=== PATIENT | male | born 1955 | race Asian ===

== ENCOUNTER 2019-09-19 20:47 | Emergency (ER) | payer MEDICAID, MEDICARE ==
[~2019-09-19] VITALS: Ht 162.6 cm; Wt 67.2 kg
[~2019-09-19 20:47] MED LIST: CELE-193 PO; FERR325C PO; LOSA25TA96 PO; PSEU120T55 PO
[2019-09-19 21:24] LABS: BASOPHILS # (AUTO) 0.1 X10'3 (0-0.2); BASOPHILS % (AUTO) 0.7 % (0-1); EOSINOPHILS # (AUTO) 0.3 X10'3 (0-0.9); EOSINOPHILS % (AUTO) 3.8 % (0-6); HEMATOCRIT 35.3 % (42.0-52.0); HEMOGLOBIN 11.4 g/dl (14.0-17.9); LYMPHOCYTES # (AUTO) 2.1 X10'3 (1.1-4.8); MEAN CORPUSCULAR HEMOGLOBIN 19.9 PG (27.0-31.0); MEAN CORPUSCULAR HGB CONC 32.2 g/dL (33.0-36.5); MEAN CORPUSCULAR VOLUME 61.8 FL (78-98); MEAN PLATELET VOLUME 8.1 FL (7.4-10.4); MONOCYTES # (AUTO) 0.4 X10'3 (0-0.9); MONOCYTES % (AUTO) 6.4 % (2-12); NEUTROPHILS % (AUTO) 58.1 % (42-75); PLATELET COUNT 226 X10'3 (140-440); RED BLOOD COUNT 5.71 X10'6 (4.70-6.10); RED CELL DISTRIBUTION WIDTH 16.1 % (11.5-14.5); WHITE BLOOD COUNT 6.9 X10'3 (4.5-11.0)
[2019-09-19] MEDS ORDERED: MELO-102 PO (21:29)
[2019-09-19] MEDS ORDERED: LOSA25TA96 PO (21:29)
[2019-09-19 21:37] LABS: ALANINE AMINOTRANSFERASE 34 U/L (12-78); ALBUMIN 3.8 G/DL (3.4-5.0); ALKALINE PHOSPHATASE 76 IU/L (46-116); ANION GAP 8 (8-16); ASPARTATE AMINO TRANSFERASE 31 U/L (10-37); BILIRUBIN,TOTAL 0.5 MG/DL (0.1-1.0); BLOOD UREA NITROGEN 22 MG/DL (7-18); BUN/CREATININE RATIO 15.2 (5.4-32.0); CHLORIDE 105 MMOL/L (99-107); CREATININE 1.45 MG/DL (0.60-1.10); GLUCOSE 133 MG/DL (70-104); POTASSIUM 3.8 MMOL/L (3.5-5.1); SODIUM 141 MMOL/L (135-145); TOTAL CARBON DIOXIDE 28.2 MMOL/L (24-32); TOTAL PROTEIN 7.6 G/DL (6.4-8.2); eGFR 49 ML/MIN
[2019-09-19 22:03] VITALS: BP 187/104
[2019-09-19 22:25] LABS: ANISOCYTOSIS 1+; MICROCYTOSIS 2+; PLATELET ESTIMATE NORMAL
== END 2019-09-19 22:05 | disposition home or self-care (01) ==
LOC: ER 20:47
DX: I10 Essential (primary) hypertension (principal); D64.9 Anemia, unspecified; N28.9 Disorder of kidney and ureter, unspecified; G89.29 Other chronic pain; Z79.899 Other long term (current) drug therapy
CPT/HCPCS: 36415; 80053; 85025; 93005; 99284

== ENCOUNTER 2019-10-25 17:07 | Emergency (ER) | payer MEDICARE ==
[~2019-10-25] VITALS: Ht 162.6 cm; Wt 67.3 kg
[~2019-10-25 17:07] MED LIST changes: -CELE-193 PO; +MELO-102 PO; -PSEU120T55 PO
[2019-10-25 17:15] VITALS: BP 163/102
[2019-10-25] MEDS ORDERED: HYDR12.55 PO (17:55)
== END 2019-10-25 18:32 | disposition home or self-care (01) ==
LOC: ER 17:08
DX: I10 Essential (primary) hypertension (principal); G89.29 Other chronic pain; Z79.899 Other long term (current) drug therapy
CPT/HCPCS: 93005; 99283

== ENCOUNTER 2020-02-23 12:16 | Emergency (ER) | payer MEDICARE ==
[~2020-02-23] VITALS: Ht 162.6 cm; Wt 64.4 kg
[~2020-02-23 12:16] MED LIST changes: +HYDR12.55 PO
--- NOTE | 2020-02-23 13:41 | NUR ---
checked in on pt to introduce myself as their new nurse pt in no apparent distress sitting comfortaby
[2020-02-23] MEDS ORDERED: LIDOcaine Viscous 15ml cup MM STA (14:26)
[2020-02-23] MEDS ORDERED: famotidine 20mg tablet PO ONE (14:30)
[2020-02-23] MEDS ORDERED: mag hydrox/Alum hydrox/simeth 30ml oral suspension PO ONE (14:30)
[2020-02-23 14:48] LABS: BASOPHILS # (AUTO) 0.1 X10'3 (0-0.2); BASOPHILS % (AUTO) 0.9 % (0-1); EOSINOPHILS # (AUTO) 0.7 X10'3 (0-0.9); HEMATOCRIT 33.2 % (42.0-52.0); HEMOGLOBIN 10.3 g/dl (14.0-17.9); LYMPHOCYTES # (AUTO) 3.1 X10'3 (1.1-4.8); LYMPHOCYTES % (AUTO) 26.3 % (21-51); MEAN CORPUSCULAR HEMOGLOBIN 19.4 PG (27.0-31.0); MEAN CORPUSCULAR HGB CONC 31.1 g/dL (33.0-36.5); MEAN CORPUSCULAR VOLUME 62.4 FL (78-98); MEAN PLATELET VOLUME 6.4 FL (7.4-10.4); MONOCYTES # (AUTO) 0.8 X10'3 (0-0.9); MONOCYTES % (AUTO) 7.1 % (2-12); NEUTROPHILS % (AUTO) 59.7 % (42-75); PLATELET COUNT 328 X10'3 (140-440); RED BLOOD COUNT 5.31 X10'6 (4.70-6.10); RED CELL DISTRIBUTION WIDTH 16.3 % (11.5-14.5); WHITE BLOOD COUNT 11.7 X10'3 (4.5-11.0)
[2020-02-23 15:04] LABS: ANISOCYTOSIS 1+; HYPOCHROMASIA 1+; MICROCYTOSIS 2+; PLATELET ESTIMATE NORMAL
[2020-02-23 15:06] LABS: ALANINE AMINOTRANSFERASE 31 U/L (12-78); ALBUMIN 3.9 G/DL (3.4-5.0); ALKALINE PHOSPHATASE 73 IU/L (46-116); ANION GAP 7 (8-16); ASPARTATE AMINO TRANSFERASE 40 U/L (10-37); BILIRUBIN,TOTAL 0.4 MG/DL (0.1-1.0); BLOOD UREA NITROGEN 24 MG/DL (7-18); BUN/CREATININE RATIO 14.5 (5.4-32.0); CALCIUM 9.1 MG/DL (8.5-10.1); CHLORIDE 103 MMOL/L (99-107); CREATININE 1.65 MG/DL (0.60-1.10); GLUCOSE 132 MG/DL (70-104); LIPASE 197 U/L (73-393); POTASSIUM 4.3 MMOL/L (3.5-5.1); SODIUM 137 MMOL/L (135-145); TOTAL CARBON DIOXIDE 26.9 MMOL/L (24-32); eGFR 42 ML/MIN
[2020-02-23 16:16] VITALS: BP 149/88
== END 2020-02-23 16:30 | disposition home or self-care (01) ==
LOC: ER 12:16
DX: R10.13 Epigastric pain (principal); K59.00 Constipation, unspecified; I10 Essential (primary) hypertension; G89.29 Other chronic pain; Z79.899 Other long term (current) drug therapy
CPT/HCPCS: 36415; 80053; 83690; 84484; 85025; 93005; 99284